=== PATIENT | male | born 1975 | race Caucasian/White ===

== ENCOUNTER 2021-11-27 13:25 | Emergency (ER) | payer OTHER ==
[~2021-11-27] VITALS: Ht 182.9 cm; Wt 95.3 kg
--- NOTE | 2021-11-27 14:24 | NUR ---
Patient discharged to [facility] enforcement in stable condition. Written and verbal after care instructions given. Pt ok to book.
--- NOTE | 2021-11-27 14:24 | NUR ---
PT REFUSED VS TO BE TAKEN. PT CLEARED BY .
== END 2021-11-27 16:10 ==
LOC: ER 13:27
DX: Z02.89 Encounter for other administrative examinations (principal)